=== PATIENT | female | born 2005 | race Caucasian/White ===

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

== ENCOUNTER 2024-04-22 13:15 | Emergency (ER) | payer MEDICAID ==
[~2024-04-22] VITALS: Ht 172.7 cm; Wt 66.4 kg
[~2024-04-22 13:15] MED LIST changes: -LIDOcaine Viscous 15ml cup MM ONE; -PROC25SU31 RC; -ketorolac tromethamine 15mg/ml inj. IV ONE; -mag hydrox/Alum hydrox/simeth 30ml oral suspension PO ONE; -normal saline 1000ml 1,000 ML IV ONE; -proCHLORperazine 10 MG/2 ml inj IV ONE
[2024-04-22 13:25] VITALS: BP 118/79; PULSE 115; RESP 16; TEMP 97; O2SAT 98
[2024-04-22] MEDS: LIDOcaine 1% W/epiNEPHrine 1:100,000 20ml vial IJ ONE (14:26)
== END 2024-04-22 14:35 | disposition home or self-care (01) ==
LOC: ER 13:15
DX: O99.891 Other specified diseases and conditions complicating pregnancy (principal); L05.01 Pilonidal cyst with abscess; Z3A.28 28 weeks gestation of pregnancy
CPT/HCPCS: 10080; 99282; A6266; A6449

== ENCOUNTER 2024-05-29 12:06 | Emergency (ER) | payer MEDICAID ==
[~2024-05-29] VITALS: Ht 172.7 cm; Wt 62.1 kg
[2024-05-29] MEDS: LIDOcaine/epinephrine/tetracaine TOPICAL sol 3 ML syringe TOP ONE (15:18)
[2024-05-29] MEDS ORDERED: AMOX-580 PO (15:59)
[2024-05-29] MEDS ORDERED: CEPH-585 PO (15:59)
[2024-05-29] MEDS: LIDOcaine 1% W/epiNEPHrine 1:100,000 20ml vial IJ ONE (16:01)
[2024-05-29 16:19] VITALS: BP 111/70; PULSE 88; RESP 17; TEMP 98.2; O2SAT 98
== END 2024-05-29 16:22 | disposition home or self-care (01) ==
LOC: ER 12:07
DX: O46.8X3 Other antepartum hemorrhage, third trimester (principal); L05.01 Pilonidal cyst with abscess; Z3A.00 Weeks of gestation of pregnancy not specified
CPT/HCPCS: 10080; 87070; 87077; 87186; 99283; A6407; J3490; 10060; A6258; A6449

== ENCOUNTER 2024-05-31 08:55 | Emergency (ER) | payer MEDICAID ==
[~2024-05-31] VITALS: Ht 172.7 cm; Wt 76.4 kg
[~2024-05-31 08:55] MED LIST changes: +AMOX-580 PO; +CEPH-585 PO
[2024-05-31] MEDS ORDERED: LIDOCAINE IJ ONE (09:30)
[2024-05-31] MEDS ORDERED: CLIN300C71 PO (10:04)
[2024-05-31 10:24] VITALS: BP 118/70; PULSE 74; RESP 16; TEMP 98.1; O2SAT 98
== END 2024-05-31 10:28 | disposition home or self-care (01) ==
LOC: ER 08:56
DX: O26.893 Other specified pregnancy related conditions, third trimester (principal); L05.01 Pilonidal cyst with abscess; Z3A.00 Weeks of gestation of pregnancy not specified
CPT/HCPCS: 99283